=== PATIENT | female | born 1985 | race Caucasian/White ===

== ENCOUNTER 2017-08-20 21:04 | Emergency (ER) | payer OTHER ==
[2017-08-20 21:42] VITALS: BP 121/85; PULSE 108; TEMP 98.5; BMI 27.4
--- NOTE | 2017-08-20 22:29 | PDOC ---
History of Present Illness - General History Source: Patient Exam Limitations: No Limitations - History of Present Illness Initial Comments: 08/20/17 23:10 The patient is a 32 year old female, with a significant past medical history of hyperlipidemia, who presents to the emergency department with fever (Tmax 100.2F ), left flank and lower abdominal pain for 4 days. The patient states her left flank region feels very sore. She also reports pain to her lower abdomen which she describes as a pressure, but denies any urinary complaints. She reports the left flank pain is constant with fluctuations in intensity and reportedly couldnt walk in the grocery store 2 days ago. She denies any exacerbating or alleviating factors of pain. She also reports one episode of nonbloody emesis yesterday. She denies chest pain, shortness of breath, headache and dizziness. She denies chills, nausea, diarrhea and constipation. She denies dysuria, frequency, urgency and hematuria. Allergies: NKDA Social History: Pt denies use of tobacco or illicit drugs. <Julia Wesley - Last Filed: 08/20/17 23:10> <Ching Nuñez - Last Filed: 08/21/17 02:35> - General Chief Complaint: Pain Stated Complaint: ABDOMINAL PAIN Time Seen by Provider: 08/20/17 22:07 Past History <Julia Wesley - Last Filed: 08/20/17 23:10> - Past Medical History Asthma: No Cancer: No Cardiac Disorders: No Diabetes: No HTN: No Seizures: No Thyroid Disease: No - Suicide/Smoking/Psychosocial Hx Smoking History: Never smoked Have you smoked in the past 12 months: No Hx Alcohol Use: No Drug/Substance Use Hx: No Hx Substance Use Treatment: No <Ching Nuñez - Last Filed: 08/21/17 02:35> - Past Medical History Allergies/Adverse Reactions: Allergies Allergy/AdvReac Type Severity Reaction Status Date / Time No Known Allergies Allergy Verified 08/20/17 21:38 Home Medications: Ambulatory Orders Vit/Iron Fum/Folic AC [ Tablet] 1 tab PO DAILY 03/12/15 Cephalexin Monohydrate [Keflex -] 500 mg PO BID #14 capsule 08/21/17 Review of Systems - Review of Systems Able to Perform ROS?: Yes Comments:: 08/20/17 23:10 CONSTITUTIONAL: (+) fever, Absent:chills, diaphoresis, generalized weakness, malaise, loss of appetite HEENT: Absent: rhinorrhea, nasal congestion, throat pain, throat swelling, difficulty swallowing, mouth swelling, ear pain, eye pain, visual Changes CARDIOVASCULAR: Absent: chest pain, syncope, palpitations, irregular heart rate, lightheadedness , peripheral edema RESPIRATORY: Absent: cough, shortness of breath, dyspnea with exertion, orthopnea, wheezing, stridor, hemoptysis GASTROINTESTINAL: (+) left flank and lower abdominal pain. Absent: abdominal distension, nausea, vomiting, diarrhea, constipation, melena, hematochezia GENITOURINARY: Absent: dysuria, frequency, urgency, hesitancy, hematuria, flank pain, genital pain MUSCULOSKELETAL: Absent: myalgia, arthralgia, joint swelling SKIN: Absent: rash, itching, pallor HEMATOLOGIC/IMMUNOLOGIC: Absent: easy bleeding, easy bruising, lymphadenopathy, frequent infections ENDOCRINE: Absent: unexplained weight gain, unexplained weight loss, heat intolerance, cold intolerance NEUROLOGIC: Absent: headache, focal weakness or paresthesias, dizziness, unsteady gait, seizure, mental status changes, bladder or bowel incontinence PSYCHIATRIC: Absent: anxiety, depression, suicidal or homicidal ideation, hallucinations. <Julia Wesley - Last Filed: 08/20/17 23:10> *Physical Exam - Vital Signs Last Vital Signs Temp Pulse Resp BP Pulse Ox 98.5 F 108 H 121/85 97 08/20/17 21:38 08/20/17 21:38 08/20/17 21:38 08/20/17 21:38 - Physical Exam Comments: 08/20/17 23:11 GENERAL: (+) febrile to the touch. Well nourished. Awake and alert. No acute distress. HEENT: Normocephalic, atraumatic. PERRLA, EOMI. No conjunctival pallor. Sclera are non- icteric. Moist mucous membranes. Oropharynx is clear. NECK: Supple. Full ROM. No JVD. Carotid pulses 2+ and symmetric, without bruits. No thyromegaly. No lymphadenopathy. CARDIOVASCULAR: Regular rate and rhythm. No murmurs, rubs, or gallops. Distal pulses are 2+ and symmetric. PULMONARY: No evidence of respiratory distress. Lungs clear to auscultation bilaterally. No wheezing, rales or rhonchi. ABDOMINAL: Soft. Non-tender. Non-distended. No rebound or guarding. No organomegaly. Normoactive bowel sounds. MUSCULOSKELETAL (+) left flank pain to percussion, diffuse tenderness with increased prominence to LLQ. Normal range of motion at all joints. No bony deformities or tenderness. No CVA tenderness. EXTREMITIES: No cyanosis. No clubbing. No edema. No calf tenderness. SKIN: Warm and dry. Normal capillary refill. No rashes. No jaundice. NEUROLOGICAL: Alert, awake, appropriate. Cranial nerves 2-12 intact. Normoreflexic in the upper and lower extremities. Normal speech. Toes are down-going bilaterally. Gait is normal without ataxia. PSYCHIATRIC: Cooperative. Good eye contact. Appropriate mood and affect. <Julia Wesley - Last Filed: 08/20/17 23:10> - Vital Signs Last Vital Signs Temp Pulse Resp BP Pulse Ox 98.5 F 108 H 121/85 97 08/20/17 21:38 08/20/17 21:38 08/20/17 21:38 08/20/17 21:38 <Ching Nuñez - Last Filed: 08/21/17 02:35> ED Treatment Course - LABORATORY CBC & Chemistry Diagram: 08/20/17 21:40 08/20/17 21:40 <Julia Wesley - Last Filed: 08/20/17 23:10> - LABORATORY CBC & Chemistry Diagram: 08/20/17 21:40 08/20/17 21:40 <Ching Nuñez - Last Filed: 08/21/17 02:35> Medical Decision Making - Medical Decision Making 08/21/17 02:01 Patient Name: PARRIS SUGGS THIS IS A PRELIMINARY REPORT FROM [facility] DATE OF SERVICE: 2017-08-21 00:41:05 IMAGES: [id number] EXAM: ABDOMEN \T\ PELVIS CT W/O CONTR HISTORY: Rule out colitis COMPARISON: None. FINDINGS: Lung bases are clear. The visualized cardiac chambers are normal size and configuration. Tiny bilateral renal stones are noted. There is mild left-sided hydronephrosis an obstructing stone is identified. Patient have recently passed a stone. Normal unenhanced liver, gallbladder, pancreas, spleen, adrenal glands . The stomach and abdominal small and large bowel are normal. There is no aortic aneurysm. There is no significant retroperitoneal lymphadenopathy. The pelvic small and large bowel are normal. The appendix is normal. The uterus and adnexal structures are normal. Urinary bladder is unremarkable. There is no pelvic free fluid. No discrete pelvic lymphadenopathy is identified. IMPRESSION: Mild left hydronephrosis could be due to recently passed stone. Tiny bilateral parenchymal renal stones. THIS DOCUMENT HAS BEEN ELECTRONICALLY SIGNED 08/21/17 02:31 Patient Name: PARRIS SUGGS THIS IS A PRELIMINARY REPORT FROM [facility] DATE OF SERVICE: 2017-08-21 00:52:16 IMAGES: [id number] EXAM: Transabdominal pelvic ultrasound, endovaginal pelvic ultrasound and pelvic duplex HISTORY: Rule out left ovarian torsion COMPARISON: None. FINDINGS: Transabdominal pelvic ultrasound:Uterus is anteverted and measures 10.7centimeters in length. Endovaginal pelvic ultrasound: The endometrium is 10millimeters in thickness which is normal. Minimal fluid is noted in the cervix which could represent blood or secretions. There are no fibroids. The right ovary measures 3.3centimeters in length, demonstrate a 1.1 cm parovarian cyst and demonstrates normal flow. Left ovary measures 3.0centimeters in length contains a 1.7 cm cyst and demonstrates normal flow. There is a small amount of free fluid. Pelvic duplex: There is normal arterial and venous flow to both ovaries. IMPRESSION: Small left ovarian cyst and small right paraovarian cyst without torsion. Small amount of free fluid may be physiologic or due to the partial cyst collapse. Cervical fluid could indicate blood or secretions. THIS DOCUMENT HAS BEEN ELECTRONICALLY SIGNED <Ching Nuñez - Last Filed: 08/21/17 02:35> *DC/Admit/Observation/Transfer - Attestations Scribe Attestion: 08/20/17 23:13 Documentation prepared by Julia Wesley, acting as biomedical field service engineer for Ching Nuñez MD <Julia Wesley - Last Filed: 08/20/17 23:10> - Discharge Dispostion Admit: No <Ching Nuñez - Last Filed: 08/21/17 02:35> Diagnosis at time of Disposition: Cystitis, Hydronephrosis of left kidney - Discharge Dispostion Disposition: HOME Condition at time of disposition: Improved - Referrals Referrals: Shawn Ramirez MD [Primary Care Provider] - - Patient Instructions Printed Discharge Instructions: Urinary Tract Infection - Post Discharge Activity
[2017-08-20 23:02] LABS: BASO % 0.5 % (0-2.0); HEMATOCRIT 40.5 % (32.4-45.2); HEMOGLOBIN 13.6 GM/dL (10.7-15.3); LYMPH % 19.8 % (8-40); MCH 29.8 pg (25.7-33.7); MCHC 33.6 g/dl (32.0-36.0); MEAN CELL VOLUME 88.6 fl (80-96); MEAN PLT VOLUME 8.3 fl (7.5-11.1); MONO % 6.7 % (3.8-10.2); PLATELET COUNT 263 K/MM3 (134-434); RBC 4.57 M/mm3 (3.60-5.2); RDW 12.8 % (11.6-15.6); URINE APPEARANCE CLOUDY; URINE BILIRUBIN NEGATIVE (NEGATIVE); URINE BLOOD NEGATIVE (NEGATIVE); URINE COLOR YELLOW; URINE GLUCOSE (UA) NEGATIVE (NEGATIVE); URINE KETONE NEGATIVE (NEGATIVE); URINE NITRITE NEGATIVE (NEGATIVE); WHITE BLOOD COUNT 12.5 K/mm3 (4.0-10.0)
[2017-08-20 23:28] LABS: ALBUMIN 4.2 g/dl (3.4-5.0); ANION GAP 10 (8-16); BILIRUBIN,TOTAL 0.4 mg/dL (0.2-1.0); BLOOD UREA NITROGEN 10 mg/dL (7-18); CALCIUM 9.1 mg/dL (8.5-10.1); CHLORIDE 99 mmol/L (98-107); CO2 29 mmol/L (21-32); CREATININE 0.6 mg/dL (0.55-1.02); GLUCOSE,RANDOM 86 mg/dL (74-106); POTASSIUM 4.1 mmol/L (3.5-5.1); SGOT/AST 14 U/L (15-37); SGPT/ALT 27 U/L (12-78); SODIUM 138 mmol/L (136-145)
[2017-08-20 23:29] LABS: ALK PHOS 126 U/L (45-117)
[2017-08-20 23:32] LABS: URINE LEUK ESTERASE 3+ (NEGATIVE); URINE PROTEIN 2+ (NEGATIVE)
[2017-08-20 23:34] LABS: EPI CELLS RARE /HPF (FEW); URINE BACTERIA RARE /hpf (NONE SEEN); URINE MUCUS RARE
[2017-08-20] MEDS ORDERED: CEFTRIAXONE 1 GM in DEXTROSE 5%-WATER - 50 ML IVPB ONE (23:42)
[2017-08-21] MEDS ORDERED: CEFTRIAXONE 1 GM/50 ML BAG ONE (00:02)
--- NOTE | 2017-08-23 07:25 | PDOC ---
Patient Follow-up (Call Back) - Post ED Follow - Up Condition at time of discharge: Improved Disposition at time of original discharge: HOME Reason for Call Back: Abnwl. Microbiology (Urine culture shows on preliminary lactose fermenting negative bacilli. Patient placed on Keflex while in the ED. Will await final report.)
--- NOTE | 2017-08-24 07:53 | PDOC ---
Patient Follow-up (Call Back) - Post ED Follow - Up Condition at time of discharge: Improved Disposition at time of original discharge: HOME Reason for Call Back: Abnwl. Microbiology (Pt. on keflex for UTI. Sensitive for cephalosporins. Appropriately treated with keflex at this time.)
== END 2017-08-21 02:54 | disposition home or self-care (01) ==
LOC: JER 21:04
DX: N30.00 Acute cystitis without hematuria (principal); N13.30 Unspecified hydronephrosis; N83.202 Unspecified ovarian cyst, left side; N83.201 Unspecified ovarian cyst, right side
CPT/HCPCS: 36415; 74176-TC; 76856-TC; 80053; 81003; 81015; 84702; 85025; 87086; 87186; 87491; 87591; 96365; 99281-25

== ENCOUNTER 2020-02-22 05:06 | Day surgery (SDC) | payer OTHER ==
[2020-02-20 08:48] VITALS: BMI 27.4
[2020-02-22 12:26] VITALS: TEMP 97.5
[2020-02-22 12:34] VITALS: PULSE 55
[2020-02-25 12:21] VITALS: BP 95/64
--- NOTE | 2020-02-25 17:28 | PATH ---
Surgical Pathology Report Patient Name: PARRIS USGGS [facility]. Rec. #: [id number] /Age/Gender: 1985 (Age: 34) / F Account: [id number] Location: U-ENDOSCOPY Taken: 02/22/2020 Received: 02/22/2020 Reported: 02/25/2020 Physicians: Sher Archer M.D. Specimen(s) Received A: DUODENUM B: STOMACH C: ESOPHAGUS Clinical History Nausea and vomiting Postoperative diagnosis: Gastritis Final Diagnosis A. DUODENUM, BIOPSY: DUODENAL MUCOSA WITH MILD ACUTE AND CHRONIC DUODENITIS. B. STOMACH, BIOPSY: GASTRIC BODY MUCOSA WITH MILD CHRONIC GASTRITIS. IMMUNOHISTOCHEMICAL STAIN FOR H. PYLORI IS NEGATIVE. C. ESOPHAGUS, BIOPSY: SQUAMOUS MUCOSA WITH CHANGES OF MILD REFLUX TYPE ESOPHAGITIS. Positive and negative controls (internal if applicable) show appropriate results. Electronically Signed Halina Guy M.D. Gross Description A. Received in formalin, labeled "biopsy duodenum" are 2 woodard, irregular portions of soft tissue measuring 0.2 and 0.3 cm. in greatest dimension. The specimens are submitted in toto in one cassette. B. Received in formalin, labeled "biopsy stomach" are 2 woodard, irregular portions of soft tissue measuring 0.2 and 0.4 cm. in greatest dimension. The specimens are submitted in toto in one cassette. C. Received in formalin, labeled "biopsy esophagus" is a woodard, irregular portion of soft tissue measuring 0.2 cm. in greatest dimension. The specimen is submitted in toto in one cassette. /02/22/2020 saudi02/22/2020
== END 2020-02-22 13:30 | disposition home or self-care (01) ==
LOC: JASU-ENDO 05:06
PROVIDERS: ATTEND Internal Medicine Gastroenterology
PROC: 0DB68ZX Excision of Stomach, Via Natural or Artificial Opening Endoscopic, Diagnostic (ICD-10-PCS; 2020-02-22)
PROC: 0DB58ZX Excision of Esophagus, Via Natural or Artificial Opening Endoscopic, Diagnostic (ICD-10-PCS; 2020-02-22)
PROC: 0DB98ZX Excision of Duodenum, Via Natural or Artificial Opening Endoscopic, Diagnostic (ICD-10-PCS; principal; 2020-02-22 12:00)
DX: K29.80 Duodenitis without bleeding (principal); K29.50 Unspecified chronic gastritis without bleeding; K21.0 Gastro-esophageal reflux disease with esophagitis; R11.2 Nausea with vomiting, unspecified; R10.13 Epigastric pain
CPT/HCPCS: 81025; 88305-TC; 88342-TC